=== PATIENT | female | born 1975 | race Caucasian/White ===

== ENCOUNTER 2017-01-28 03:50 | Emergency (ER) | payer OTHER ==
[~2017-01-28] VITALS: Ht 160 cm; Wt 63.6 kg
[~2017-01-28 03:50] MED LIST: CIPROFLOXACIN500 M1 PO; ENDOCET 5-3251 EACH PO; FLONASE ALLERG9.9 ML BOTH NARES; IBUPROFEN800 MG PO; ONDANSETRON HCL4 MG PO; PERCOCET 5/31 TABLET PO; RAPAFLO8 MG PO; TORADOL10 MG PO; ULTRAM50 MG PO; ZOFRAN ODT4 MG PO; ZOFRAN4 MG PO
[2017-01-28 04:31] LABS: INTERNAL CONTROL VALID? YES
[2017-01-28 04:32] LABS: ADD MIUA? YES; BILIRUBIN NEGATIVE; BLOOD NEGATIVE; COLOR YELLOW ((YELLOW)); GLUCOSE (STRIP) NEGATIVE; KETONES NEGATIVE; LEUKOCYTES NEGATIVE; NITRITE NEGATIVE; PROTEIN (STRIP) 30; SPECIFIC GRAVITY 1.019 (1.000-1.030); UROBILINOGEN 0.2 MG/DL (0.2-1.0)
[2017-01-28 05:19] LABS: BACTERIA NONE SEEN /HPF; EPITHELIAL CELLS 1+ /HPF; MUCUS 4+ /LPF; RED BLOOD CELLS 0-5 /HPF (0-5); UCUL ADDED? NO; WHITE BLOOD CELLS 0-5 /HPF (0-5)
[2017-01-28] MEDS ORDERED: CIPRO250 MG PO (05:24)
[2017-01-28 05:44] VITALS: BP 127/55
== END 2017-01-28 05:45 | disposition home or self-care (01) ==
LOC: EME 03:50
PROVIDERS: Physician Assistant
DX: R30.0 Dysuria (principal); R35.0 Frequency of micturition; F32.9 Major depressive disorder, single episode, unspecified; Z87.442 Personal history of urinary calculi; F17.200 Nicotine dependence, unspecified, uncomplicated
CPT/HCPCS: 81003; 84703; 87086; 99281; 99284